=== PATIENT | male | born 1985 | race Caucasian/White ===

== ENCOUNTER 2016-12-16 06:41 | Emergency (ER) | payer OTHER ==
[~2016-12-16] VITALS: Ht 190.5 cm; Wt 111.1 kg
[2016-12-16 06:41] VITALS: BP 133/74
--- NOTE | 2016-12-16 07:16 | PHYS DOC ---
General Chief Complaint: SORE THROAT Stated Complaint: SORE THROAT, EAR PAIN Time Seen by MD: 06:50 Source: patient Exam Limitations: no limitations Problems: History of Present Illness Initial Comments Pt is 31/M to ED c/o ST and right ear pain. Pt has chronic AR, past days worsening sore throat. Today throat pain radiates to right ear w/muffled hearing. No measured temps, pt drinking not eating. + myalgias/BLOOM, OTC meds not helping. No dyspnea/dysphagia. Timing/Duration: last week Severity: severe Location: ear (R), throat Prearrival Treatment: over the counter meds Modifying Factors: worse with coughing Associated Symptoms: change in hearing, fever, malaise, poor solids intake, sore throat Allergies: Coded Allergies: Penicillins (Verified Allergy, Unknown, 12/16/16) Past Medical History Medical History: allergies Surgical History: noncontributory Social History Smoker: non-smoker Alcohol: none Drugs: none Constitutional: see HPI Eyes: denies blindness, denies blurred vision, denies drainage Ears: see HPI, denies dizziness, denies tinnitus, denies clear discharge Nose: denies clots, denies congestion, denies epistaxis Throat: see HPI, pain, denies swelling, denies neck stiffness, painful swallowing Respiratory: denies cough, denies shortness of breath Cardiovascular: denies chest pain, denies palpitations Gastrointestinal: denies diarrhea, denies nausea, denies vomiting Musculoskeletal: see HPI, denies back pain, denies joint swelling, denies neck pain Neurological: see HPI Physical Exam General Appearance: no apparent distress, obese Eyes: bilateral eye normal inspection, bilateral eye PERRL, bilateral eye EOMI Ears: right ear other (serous otitis right ear no erythema/purulence), left ear TM normal, bilateral ear auricle normal, bilateral ear canal normal Nose: normal inspection Mouth/Throat: other (pharynx beefy red w/exudate) Neck: supple, trachea midline, lymphadenopathy (R), lymphadenopathy (L) Cardiovascular/Respiratory: normal peripheral pulses, no respiratory distress 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 Continue current meds. OTC tylenol as needed. Rx: z-matilda, prednisone (decrease throat swelling to open eustachian tube) Follow up with your doctor in 5-7 days as needed. Return to ED with new or changing symptoms. ABILIO SADLER DO December 16, 2016 07:16
[2016-12-16] MEDS ORDERED: PRED20TA PO (07:17)
[2016-12-16] MEDS ORDERED: AZIT250T PO (07:17)
[2016-12-16] MEDS ORDERED: predniSONE 20 MG TABLET ONE (07:36)
[2016-12-16] MEDS ORDERED: AZITHROMYCIN 250 MG TABLET. PO ONE (07:45)
[2016-12-16] MEDS ORDERED: predniSONE 20 MG TABLET PO ONE (07:45)
== END 2016-12-16 07:39 | disposition home or self-care (01) ==
LOC: ER 06:41
DX: J02.9 Acute pharyngitis, unspecified (principal); H65.91 Unspecified nonsuppurative otitis media, right ear; J30.9 Allergic rhinitis, unspecified; Z88.0 Allergy status to penicillin
CPT/HCPCS: 87070; 87880; 99283; J0456; J7512